=== PATIENT | female | born 1975 | race Caucasian/White ===

== ENCOUNTER 2017-01-09 17:28 | Emergency (ER) | payer BC ==
[2017-01-09 17:51] VITALS: BP 152/93
--- NOTE | 2017-01-09 18:11 | EDM.PDOC ---
ED HPI GENERAL MEDICAL PROBLEM - General Chief Complaint: Upper Extremity Injury/Pain Stated Complaint: RT MIDDLE FINGER INJURY Time Seen by Provider: 01/09/17 18:00 Source of Information: Reports: Patient History Limitations: Reports: No Limitations - History of Present Illness INITIAL COMMENTS - FREE TEXT/NARRATIVE: Gloria presents today with complaints of bruising and edema to right third finger for 24 hours. She reports working and getting docks out of the [employer] yesterday. She denies trauma or injury to the finger. Onset Date: 01/08/17 right middle finger Pain Score (Numeric/FACES): 2 - Related Data Allergies Allergy/AdvReac Type Severity Reaction Status Date / Time Penicillins Allergy Stomach Verified 07/21/15 06:09 Upset Home Meds: Home Meds Norethindrone AC-Eth Estradiol [Microgestin] 1 tab PO DAILY 12/06/13 [History] Cyanocobalamin (Vitamin B-12) [Vitamin B-12] 1,000 mcg SL DAILY 07/17/15 [ History] Past Medical History - Past Health History Medical/Surgical History: Denies Medical/Surgical History HEENT History: Reports: Impaired Vision Other HEENT History: wears glasses Gastrointestinal History: Reports: Colon Polyp Other OB/BYN History: polups removed Musculoskeletal History: Reports: None Hematologic History: Reports: B12 Deficiency - Infectious Disease History Infectious Disease History: Reports: Chicken Pox - Past Surgical History Musculoskeletal Surgical History: Reports: Arthroscopic Procedure Social & Family History - Family History Cardiac: Reports: Hypertension, [place] GI: Reports: Colon Polyps Endocrine/Metabolic: Reports: IDDM - Tobacco Use Smoking Status *Q: Never Smoker Second Hand Smoke Exposure: No - Caffeine Use Caffeine Use: Reports: Coffee, Energy Drinks - Alcohol Use Days Per Week of Alcohol Use: 7 Number of Drinks Per Day: 2 Total Drinks Per Week: 14 - Recreational Drug Use Recreational Drug Use: No Review of Systems - Review of Systems Review Of Systems: See Below Constitutional: Reports: No Symptoms Eyes: Reports: No Symptoms Ears: Reports: No Symptoms Nose: Reports: No Symptoms Mouth/Throat: Reports: No Symptoms Respiratory: Reports: No Symptoms Cardiovascular: Reports: No Symptoms Musculoskeletal: Reports: Other (Bruising and edema to right 3rd finger. ) Skin: Reports: Bruising. Denies: Rash, Erythema, Wound Neurological: Reports: No Symptoms Psychiatric: Reports: No Symptoms ED EXAM, GENERAL - Physical Exam Exam: See Below Free Text/Narrative:: Gloria is an alert, oriented and pleasant 41 year old female presenting to the ER with complaints of edema and ecchymosis of the right 3rd finger for 24 hours. She denies trauma to the finger or hand. No wounds, insect bites or recent injury. Exam Limited By: No Limitations General Appearance: Alert, WD/WN, No Apparent Distress Eye Exam: Bilateral Eye: EOMI, PERRL Throat/Mouth: Normal Inspection, Normal Lips, Normal Teeth, Normal Gums, Normal Oropharynx, Normal Voice, No Airway Compromise Head: Atraumatic, Normocephalic Neck: Normal Inspection, Supple, Non-Tender, Full Range of Motion Respiratory/Chest: No Respiratory Distress, Lungs Clear, Normal Breath Sounds, No Accessory Muscle Use, Chest Non-Tender Cardiovascular: Normal Peripheral Pulses, Regular Rate, Rhythm, No Edema, No Murmur, No Rub Peripheral Pulses: 2+: Radial (L), Radial (R) Back Exam: Normal Inspection, Full Range of Motion. No: CVA Tenderness (R) Extremities: Normal Inspection, Normal Range of Motion, Non-Tender, No Pedal Edema, Normal Capillary Refill Neurological: Alert, Oriented, CN II-XII Intact, Normal Cognition, No Motor/ Sensory Deficits Psychiatric: Normal Affect, Normal Mood Skin Exam: Warm, Dry, Intact, Ecchymosis, Other (edema to right 3rd finger. ) Lymphatic: No Adenopathy Course - Vital Signs Last Recorded V/S: Last Vital Signs Temp 36.2 C 01/09/17 17:45 Pulse 76 01/09/17 17:45 Resp 16 01/09/17 17:45 BP 152/93 H 01/09/17 17:51 Pulse Ox 99 01/09/17 17:45 - Orders/Labs/Meds Orders: Active Orders 24 hr Category Date Time Status Fingers Third Digit Rt F7 [CR] Stat Exams 01/09/17 18:11 Taken - Radiology Interpretation Free Text/Narrative:: We will obtain an x-ray. 18:28 X-ray wet read, no acute findings. Radiologist read pending. - Re-Assessments/Exams Free Text/Narrative Re-Assessment/Exam: 01/09/17 18:37 X-ray reviewed with patient as well as assessment findings. Patient and her are in agreement with plan. Departure - Departure Time of Disposition: 18:28 Disposition: Home, Self-Care 01 Condition: Good Clinical Impression: Superficial bruising of finger, Edema - Discharge Information Referrals: Armando Breen MD [Primary Care Provider] - Forms: ED Department Discharge Additional Instructions: Your x-ray of the right third finger was negative for any acute findings. You have suffered from a broken blood vessel to the right 3rd finger with edema without any other acute findings or process. It would be best for you to rest, elevated and alternate ice and heat therapy to the finger for 15 to 20 minutes at a time four times a day or more. You can use ibuprofen and acetaminophen as needed for pain. Follow up with your primary provider in two weeks for a recheck. Return for worsening, issues or concerns. - My Orders Last 24 Hours: My Active Orders 01/09/17 18:11 Fingers Third Digit Rt F7 [CR] Stat - Assessment/Plan Last 24 Hours: My Active Orders 01/09/17 18:11 Fingers Third Digit Rt F7 [CR] Stat Assessment:: Superficial bruising of the finger right 3rd. Edema Range of motion and full sensation intact to finger. Plan: X-ray of the right third finger was negative for any acute findings. Patient suffered from a broken blood vessel to the right 3rd finger with edema without any other acute findings or process. It would be best for her to rest, elevated and alternate ice and heat therapy to the finger for 15 to 20 minutes at a time four times a day or more. She can use ibuprofen and acetaminophen as needed for pain. Follow up with primary provider in two weeks for a recheck. Return for worsening, issues or concerns.
--- NOTE | 2017-01-10 09:39 | CR ---
Fingers Third Digit Rt F7 HISTORY: Bruising COMPARISON: None FINDINGS: Multiple views of the right finger show no evidence of traumatic, arthritic, or inflammator y change. IMPRESSION: Normal right finger.
== END 2017-01-09 18:40 | disposition home or self-care (01) ==
LOC: JP.ED 17:28
DX: S60.031A Contusion of right middle finger without damage to nail, initial encounter (principal); Z98.890 Other specified postprocedural states; Z88.0 Allergy status to penicillin; X58.XXXA Exposure to other specified factors, initial encounter; Y93.89 Activity, other specified
CPT/HCPCS: 73140-26-F7; 73140-F7; 99284

== ENCOUNTER 2017-08-18 21:42 | Emergency (ER) | payer BC, OTHER ==
[2017-08-18 22:57] VITALS: BP 170/91
[2017-08-18] MEDS ORDERED: Ketorolac 60 MG/2 ML SDV IM ONE (23:49)
--- NOTE | 2017-08-18 23:56 | EDM.PDOC ---
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 Today had a 4 hour ride to the [facility] for Son and 4 hours back, notice her left left had intermittent sharp shooting pain in the lower leg, then left buttocks pain and spasm. has history of Sciatica, which she sees the Chiropractor for care. denies any fever, chills, nausea, vomiting. She reports usually in good health. Duration: Waxing/Waning Location: Reports: Back, Lower Extremity, Left Quality: Reports: Same as Previous Episode Severity: Mild Improves with: Reports: None Worsens with: Reports: None Associated Symptoms: Reports: No Other Symptoms Treatments RATE EXAMINER: Reports: Aspirin - Related Data Allergies Allergy/AdvReac Type Severity Reaction Status Date / Time Penicillins Allergy Stomach Verified 08/18/17 23:07 Upset Home Meds: Home Meds Norethindrone AC-Eth Estradiol [Microgestin] 1 tab PO DAILY 12/06/13 [History] Past Medical History - Past Health History Medical/Surgical History: Denies Medical/Surgical History HEENT History: Reports: Impaired Vision Other HEENT History: wears glasses Gastrointestinal History: Reports: Colon Polyp Other OB/BYN History: polups removed Musculoskeletal History: Reports: None Hematologic History: Reports: B12 Deficiency - Infectious Disease History Infectious Disease History: Reports: Chicken Pox - Past Surgical History Musculoskeletal Surgical History: Reports: Arthroscopic Procedure Social & Family History - Family History Family Medical History: Noncontributory Cardiac: Reports: Hypertension, [place] GI: Reports: Colon Polyps Endocrine/Metabolic: Reports: IDDM - Tobacco Use Smoking Status *Q: Never Smoker - Caffeine Use Caffeine Use: Reports: Energy Drinks - Alcohol Use Days Per Week of Alcohol Use: 7 Number of Drinks Per Day: 1 Total Drinks Per Week: 7 - Recreational Drug Use Recreational Drug Use: No - Living Situation & Occupation Living situation: Reports: Occupation: Employed (lives with at [facility] ED ROS GENERAL - Review of Systems Review Of Systems: See Below Constitutional: Reports: No Symptoms HEENT: Reports: Rhinitis (seasonal allergry) Respiratory: Reports: No Symptoms Cardiovascular: Reports: No Symptoms Endocrine: Reports: No Symptoms GI/Abdominal: Reports: No Symptoms Musculoskeletal: Reports: Back Pain, Leg Pain, Muscle Pain (spasms) Skin: Reports: No Symptoms Neurological: Reports: No Symptoms Psychiatric: Reports: No Symptoms Hematologic/Lymphatic: Reports: No Symptoms ED EXAM, GENERAL - Physical Exam Exam: See Below Exam Limited By: No Limitations General Appearance: Alert, WD/WN, No Apparent Distress Eye Exam: Bilateral Eye: PERRL Ears: Normal External Exam, Normal Canal, Hearing Grossly Normal, Normal TMs Ear Exam: Bilateral Ear: Auricle Normal, Canal Normal, TM normal Nose: No Blood, Nasal Tenderness (left maxillary; mild pressure with palpation) , Clear Rhinorrhea Throat/Mouth: Normal Inspection, Normal Lips, Normal Teeth, Normal Gums, Normal Oropharynx, Normal Voice, No Airway Compromise Head: Atraumatic, Normocephalic Neck: Normal Inspection, Supple, Non-Tender, Full Range of Motion Respiratory/Chest: No Respiratory Distress, Lungs Clear, Normal Breath Sounds, No Accessory Muscle Use, Chest Non-Tender Cardiovascular: Regular Rate, Rhythm, No Edema, No Murmur GI/Abdominal: Normal Bowel Sounds, Soft Back Exam: Normal Inspection, Full Range of Motion, Muscle Spasm (left sciaticia , left lumbar area) Extremities: Normal Inspection, Normal Range of Motion, Non-Tender, No Pedal Edema, Normal Capillary Refill, Other (gait and balance intact. negative montrell' s sign) Psychiatric: Normal Affect, Normal Mood Skin Exam: Warm, Dry, Intact, Normal Color, No Rash Lymphatic: No Adenopathy Course - Vital Signs Last Recorded V/S: Last Vital Signs Temp 36.5 C 08/18/17 23:08 Pulse 83 08/18/17 23:08 Resp 16 08/18/17 23:08 BP 170/91 H 08/18/17 23:08 Pulse Ox 96 08/18/17 23:08 - Orders/Labs/Meds Meds: Medications Discontinued Medications Generic Name Dose Route Start Last Admin Trade Name Freq PRN Reason Stop Dose Admin Ketorolac Tromethamine 60 mg 05/17/18 23:49 Toradol IM 08/18/17 23:50 ONETIME ONE - Re-Assessments/Exams Free Text/Narrative Re-Assessment/Exam: 08/19/17 00:03 discussed muscle spasms, fatigue from 8 hours car ride will give Toradol 60 mg im, will discharge to home with Flexeril and Toradol nose; discussed allergies, has allergy tab at home. Departure - Departure Time of Disposition: 00:05 Disposition: Home, Self-Care 01 Condition: Good Clinical Impression: Leg muscle spasm Qualifiers: Laterality: left Qualified Code(s): M62.838 - Other muscle spasm - Discharge Information Referrals: Armando Breen MD [Primary Care Provider] - Forms: ED Department Discharge Care Plan Goals: leg muscle spasm -Toradol 10mg one every 8 hours, start tomorrow morning -Flexeril 10mg every 8 hours, start tonight rest, avoid any prolonged standing, sitting, twisting, bending or lifting for 3 days then increase activities as tolerated return to Clinic or ER for any increased pain, fever, chills, nausea, vomiting, rash or not improved. - Problem List & Annotations (1) Leg muscle spasm SNOMED Code(s): 87451985, [id number] Code(s): M62.838 - OTHER MUSCLE SPASM Status: Acute Priority: High Current Visit: Yes Qualifiers: Laterality: left Qualified Code(s): M62.838 - Other muscle spasm - Problem List Review Problem List Initiated/Reviewed/Updated: Yes - Assessment/Plan Plan: leg muscle spasm -Toradol 10mg one every 8 hours, start tomorrow morning -Flexeril 10mg every 8 hours, start tonight rest, avoid any prolonged standing, sitting, twisting, bending or lifting for 3 days then increase activities as tolerated return to Clinic or ER for any increased pain, fever, chills, nausea, vomiting, rash or not improved.
== END 2017-08-19 00:21 | disposition home or self-care (01) ==
LOC: JP.ED 21:42
DX: M62.838 Other muscle spasm (principal); Z88.0 Allergy status to penicillin; Z79.899 Other long term (current) drug therapy
CPT/HCPCS: 96372; 99283; J1885

== ENCOUNTER → 2018-07-05 | Outpatient (CLI) | payer OTHER ==
--- NOTE | 2018-07-06 10:52 | CRLMY ---
INDICATION: Bilateral screening mammogram, asymptomatic female age 42 been obtained using full-field digital technique. These mammographic images were interpreted with the benefit of computer-aided detection. COMPARISON FILM: 10/29/16, 02/04/15(R), 01/30/15. FINDINGS: The breast tissue is heterogeneously dense, which could obscure detection of small masses. There are no masses or calcifications that are suspicious for malignancy. IMPRESSION: There is no radiographic evidence for malignancy. ASSESSMENT: BI-RADS Category 2: Benign RECOMMENDATION: Routine screening mammogram in 1 year. A lay language report of this examination will be provided to the patient. Breast Tomosynthesis was used in this interpretation. [email or web address] Dictated by: Kevin Jin MD @ 07/06/2018 10:51:46 (Electronically Signed)
== END ==
LOC: JP.MAM 07:14
PROVIDERS: ATTEND Family Medicine
DX: Z12.31 Encounter for screening mammogram for malignant neoplasm of breast (principal)
CPT/HCPCS: 77063; 77067

== ENCOUNTER 2022-11-11 11:33 | Emergency (ER) | payer OTHER ==
[2022-11-11 12:58] LABS: BASOPHILS ABSOLUTE AUTO 0.05 K/uL (0.00-0.10); BASOPHILS PERCENT AUTO 0.5 % (0.1-1.3); EOSINOPHILS ABSOLUTE AUTO 0.16 K/uL (0.00-0.40); EOSINOPHILS PERCENT AUTO 1.5 % (0.0-5.4); HEMATOCRIT 42.1 % (34.3-46.0); HEMOGLOBIN 14.3 g/dL (11.2-15.5); IMMATURE GRAN ABSOLUTE AUTO 0.03 K/uL (0.00-0.23); IMMATURE GRAN PERCENT AUTO 0.3 % (0.0-0.7); LYMPHOCYTES ABSOLUTE AUTO 2.41 K/uL (0.8-3.3); LYMPHOCYTES PERCENT AUTO 23.2 % (11.4-47.7); MEAN CORPUSCULAR HEMOGLOBIN 30.7 pg (31.6-35.5); MEAN CORPUSCULAR VOLUME 90.3 fL (81.4-99.0); MONOCYTES ABSOLUTE AUTO 0.59 K/uL (0.20-0.90); MONOCYTES PERCENT AUTO 5.7 % (3.3-12.6); NEUTROPHILS ABSOLUTE AUTO 7.13 K/uL (1.0-7.6); NEUTROPHILS PERCENT AUTO 68.8 % (40.0-78.1); PLATELET COUNT,PLT 257 K/uL (130-375); RED BLOOD CELL COUNT 4.66 M/uL (3.77-5.24); WHITE BLOOD CELL COUNT,WBC 10.4 K/uL (3.2-11.0)
[2022-11-11 13:23] VITALS: BP 125/73; PULSE 58
[2022-11-11 13:23] LABS: BLOOD UREA NITROGEN,BUN 19 mg/dL (7-18); CALCIUM 9.2 mg/dL (8.5-10.1); CARBON DIOXIDE,CO2 26 mmol/L (21-32); CHLORIDE,CL 105 mmol/L (100-108); EST CRCL DRUG DOSING (CG) 51.92 mL/min; ESTIMATED GFR 69 mL/min (>60); GLUCOSE RANDOM 100 mg/dL (74-106); SODIUM,NA 139 mmol/L (140-148)
[2022-11-11 13:24] LABS: TROPONIN I HIGH SENSITIVITY < 4.0 pg/mL (<=60.3)
[2022-11-11 13:26] LABS: SEDIMENTATION RATE MANUAL 12 mm/hr (0-25)
== END 2022-11-11 14:00 | disposition home or self-care (01) ==
LOC: JP.ED 11:33
DX: R07.89 Other chest pain (principal); Z88.0 Allergy status to penicillin
CPT/HCPCS: 36415; 71045; 71045-26; 80048; 84484; 85025; 85379; 85651; 93005; 93010; 99284; 99285

== ENCOUNTER 2022-11-23 07:04 | Day surgery (SDC) | payer OTHER ==
[~2022-11-23 07:04] MED LIST: Midazolam 1 MG/ML 2 ML SDV ONE; Propofol 200 MG/20 ML SDV ONE; fentaNYL 50 MCG/ML SDV ONE
[2022-11-23] MEDS: Dextrose 5%-Lactated Ringers 1,000 ML IV SCH (07:45)
[2022-11-23 10:03] VITALS: BP 122/70; PULSE 87
== END 2022-11-23 11:01 | disposition home or self-care (01) ==
LOC: JP.SDS 07:04
PROVIDERS: ATTEND Surgery
DX: K31.A0 Gastric intestinal metaplasia, unspecified (principal); K21.9 Gastro-esophageal reflux disease without esophagitis; K44.9 Diaphragmatic hernia without obstruction or gangrene; Z88.0 Allergy status to penicillin; Z79.899 Other long term (current) drug therapy
CPT/HCPCS: 43239; 87081; 88305; J2250; J2704; J3010; J7121

== ENCOUNTER 2022-12-02 08:08 | Inpatient (IN) | payer OTHER ==
[2022-12-02] MEDS ORDERED: Scopolamine 1.5 MG Transdermal Patch TRDERM SCH (08:30)
[2022-12-02 08:38] LABS: HEMATOCRIT 43.7 % (34.3-46.0); HEMOGLOBIN 14.4 g/dL (11.2-15.5); MEAN CORPUSCULAR HEMOGLOBIN 30.6 pg (31.6-35.5); RED BLOOD CELL COUNT 4.7 M/uL (3.77-5.24); WHITE BLOOD CELL COUNT,WBC 5.7 K/uL (3.2-11.0)
[2022-12-02 08:59] LABS: ALANINE AMINOTRANSFERASE,ALT 41 U/L (12-78); ALBUMIN 3.4 g/dL (3.4-5.0); ALKALINE PHOSPHATASE 61 U/L (46-116); ANION GAP 7.2 mmol/L (5.0-14.0); ASPARTATE AMNIOTRANSFERASE,AST 21 U/L (15-37); BILIRUBIN TOTAL 0.4 mg/dL (0.2-1.0); BLOOD UREA NITROGEN,BUN 14 mg/dL (7-18); CALCIUM 8.9 mg/dL (8.5-10.1); CARBON DIOXIDE,CO2 28 mmol/L (21-32); CHLORIDE,CL 105 mmol/L (100-108); CREATININE 1.1 mg/dL (0.6-1.0); ESTIMATED GFR 62 mL/min (>60); GLUCOSE RANDOM 92 mg/dL (74-106); POTASSIUM,K 4.3 mmol/L (3.6-5.2); PROTEIN TOTAL,TP 6.9 g/dL (6.4-8.2); SODIUM,NA 140 mmol/L (140-148)
[2022-12-02] MEDS ORDERED: Dextrose 5%-Lactated Ringers 1,000 ML IV SCH (09:00)
[2022-12-02] MEDS ORDERED: ceFAZolin 2 GM in Premix Bag 1 BAG IV ONE (09:45)
[2022-12-02] MEDS ORDERED: Ketamine 500 MG/5 ML MDV IV SCH (10:00)
[2022-12-02] MEDS ORDERED: Ketamine 14 MG in Sodium Chloride 0.9% 19.86 ML IV SCH (10:00)
[2022-12-02] MEDS ORDERED: fentaNYL 250 MCG/5 ML SDV ONE (10:12)
[2022-12-02] MEDS ORDERED: Neostigmine Methylsulfate 1 MG/ML 5 ML Syringe ONE (10:13)
[2022-12-02] MEDS ORDERED: Glycopyrrolate 0.2 MG/ML 5 ML MDV ONE (10:13)
[2022-12-02] MEDS ORDERED: Propofol 200 MG/20 ML SDV ONE (10:13)
[2022-12-02] MEDS ORDERED: Ondansetron 4 MG/2 ML SDV ONE (10:13)
[2022-12-02] MEDS ORDERED: Succinylcholine 200 MG/10 ML MDV ONE (10:13)
[2022-12-02] MEDS ORDERED: Dexamethasone 4 MG/ML SDV ONE (10:13)
[2022-12-02] MEDS ORDERED: Rocuronium 50 MG/5 ML Vial ONE (10:13)
[2022-12-02] MEDS ORDERED: hydrOXYzine HCL 100 MG/2 ML SDV IM ONE (12:31)
[2022-12-02] MEDS ORDERED: fentaNYL 50 MCG/ML SDV IVPUSH ONE (12:31)
[2022-12-02] MEDS ORDERED: Cyclobenzaprine 10 MG Tab PO PRN (13:27)
[2022-12-02] MEDS ORDERED: Metoclopramide 10 MG/2 ML SDV IVPUSH PRN (14:00)
[2022-12-02] MEDS ORDERED: Ondansetron 4 MG/2 ML SDV IVPUSH PRN (14:00)
[2022-12-02] MEDS ORDERED: oxyCODONE 5 MG Tab PO PRN (14:00)
[2022-12-02] MEDS ORDERED: Acetaminophen 500 MG Tab PO PRN (14:00)
[2022-12-02] MEDS ORDERED: diphenhydrAMINE 50 MG/ML SDV IVPUSH PRN (14:00)
[2022-12-02] MEDS ORDERED: Pantoprazole 40 MG Vial IVPUSH SCH (14:00)
[2022-12-02] MEDS ORDERED: hydrOXYzine HCL 100 MG/2 ML SDV IM PRN (14:00)
[2022-12-02] MEDS ORDERED: HYDROmorphone 1 MG/ML Syringe IV PRN (14:00)
[2022-12-02] MEDS ORDERED: HYDROmorphone 0.5 MG/0.5 ML Syringe IVPUSH PRN (14:00)
[2022-12-02] MEDS ORDERED: Labetalol 20 MG/4 ML Syringe IVPUSH PRN (14:00)
[2022-12-02] MEDS ORDERED: traMADol 50 MG Tab PO PRN (14:00)
[2022-12-02] MEDS: SCOPOLAMINE PATCH CHECK TOP SCH (15:33)
[2022-12-02] MEDS: ceFAZolin 2 GM in Premix Bag 1 BAG IV SCH (18:29)
[2022-12-02] MEDS: Acetaminophen 500 MG Tab PO SCH (20:31)
[2022-12-02] MEDS: Oxybutynin 5 MG Tab PO SCH (20:31)
[2022-12-02] MEDS: Dextrose 5%-Lactated Ringers 1,000 ML IV SCH (21:21)
[2022-12-03] MEDS: ceFAZolin 2 GM in Premix Bag 1 BAG IV SCH ×2 (01:59→09:29)
[2022-12-03] MEDS ORDERED: Iopamidol 612 MG/ML 30 ML SDV PO STA (04:02)
[2022-12-03] MEDS: Acetaminophen 500 MG Tab PO SCH (04:10)
[2022-12-03] MEDS: Dextrose 5%-Lactated Ringers 1,000 ML IV SCH (06:29)
[2022-12-03] MEDS: Oxybutynin 5 MG Tab PO SCH (08:28)
[2022-12-03] MEDS: SCOPOLAMINE PATCH CHECK TOP SCH (08:29)
[2022-12-03 08:36] VITALS: BP 156/70; PULSE 78
[2022-12-03] MEDS ORDERED: Celecoxib 200 MG Cap PO SCH (09:00)
[2022-12-03] MEDS ORDERED: Lisinopril 20 MG Tab PO SCH (09:00)
[2022-12-03] MEDS ORDERED: [UNRECOGNIZED DRUG - OTHER] PO SCH (09:00)
== END 2022-12-03 09:15 | disposition home or self-care (01) | DRG 328 ==
LOC: JP.SDSSCHI 08:08 → JP.MS 13:30
PROVIDERS: ADMIT Surgery; ATTEND Surgery
PROC: 0DV44ZZ Restriction of Esophagogastric Junction, Percutaneous Endoscopic Approach (ICD-10-PCS; principal; 2022-12-02)
PROC: 0BUT4JZ Supplement Diaphragm with Synthetic Substitute, Percutaneous Endoscopic Approach (ICD-10-PCS; 2022-12-02)
DX: K44.9 Diaphragmatic hernia without obstruction or gangrene (principal); K21.9 Gastro-esophageal reflux disease without esophagitis; R13.10 Dysphagia, unspecified; Z88.0 Allergy status to penicillin; Z79.899 Other long term (current) drug therapy
CPT/HCPCS: 36415; 74240; 74240-26; 80053; 85027; A9270-GY; C1713; C1781; C9113; J0131; J0171; J0330; J0690; J1100; J2405; J2704; J2710; J2795; J3010; J3410; J3490; J7121; Q9967; U0002